=== PATIENT | female | born 1970 | race Caucasian/White ===

== ENCOUNTER 2019-10-12 11:18 | Outpatient (RCR) | payer SELFPAY ==
[2019-10-12 15:05] VITALS: BP 103/66
--- NOTE | 2019-10-12 15:05 | Cardiology Stress Test Report ---
Stress Test Report Date of Procedure/Referring: Date of Procedure: Oct 12, 2019 PCP Rosa Panda MD Admitting Physician [facility] Indications: Chest pain Baseline Heart Rate: 77 Baseline Blood Pressure: Blood Pressure Systolic: 103 Blood Pressure Diastolic: 66 Baseline EKG: Baseline EKG: normal sinus rhythm Summary/Conclusion: Summary: In summary, the patient started exercising with a baseline heart rate, blood pressure and EKG mentioned above Patient was able to exercise for a total of [ 7:30]minutes on Mario protocol, METs 9.1 Maximum heart rate 144 Maximum blood pressure 142/87 Stress EKG, Minimal nondiagnostic changes Recovery EKG , Return to baseline Conclusion: 1. Good exercise tolerance for a total of 7:30 minutes on Mario protocol, 9.1 METs, achieving 83 percent of maximum expected heart rate 2. Minimal nondiagnostic EKG changes with exercise returned to baseline during recovery 3. No arrhythmia was noted ROSA PANDA MD Oct 12, 2019 15:05
== END 2020-01-10 | disposition home or self-care (01) ==
LOC: CARD 11:18
PROVIDERS: ATTEND Internal Medicine Cardiovascular Disease
DX: J44.9 Chronic obstructive pulmonary disease, unspecified (principal); R00.2 Palpitations; R60.9 Edema, unspecified
CPT/HCPCS: 93017; 93225; 93226; 93306